=== PATIENT | male | born 1945 | race African-American/Black ===

== ENCOUNTER 2017-10-17 10:37 | Emergency (ER) | payer OTHER, BC ==
[~2017-10-17] VITALS: Ht 190.5 cm; Wt 84.4 kg
[2017-10-17 12:09] LABS: URINE BILIRUBIN NEGATIVE (Negative); URINE BLOOD NEGATIVE (Negative); URINE CLARITY CLEAR; URINE COLOR YELLOW; URINE GLUCOSE-RANDOM* NEGATIVE (Negative); URINE KETONES NEGATIVE (Negative); URINE LEUKOCYTES-REFLEX NEGATIVE (Negative); URINE NITRITE-REFLEX NEGATIVE (Negative); URINE PROTEIN (DIPSTICK) NEGATIVE (Negative); URINE UROBILINOGEN 0.2 E.U./dl (0.2-1.0)
[2017-10-17] MEDS ORDERED: FLOMAX0.4 MG PO (12:12)
[2017-10-17 13:25] VITALS: BP 127/70
== END 2017-10-17 13:26 | disposition home or self-care (01) ==
LOC: ER 10:37
PROVIDERS: Emergency Medicine
DX: R33.9 Retention of urine, unspecified (principal)

== ENCOUNTER 2018-10-04 11:48 | Inpatient (IN) | payer OTHER, BC ==
[2018-10-04] VITALS (8 sets, daily range): BP systolic 99–150; BP diastolic 48–70
[~2018-10-04] VITALS: Ht 190.5 cm; Wt 83.9 kg
[~2018-10-04 11:48] MED LIST: FLOMAX0.4 MG PO
[2018-10-04 12:32] LABS: MCH 32.5 pg (26.0-34.0); MCHC 33.8 g/dL (28.0-37.0)
[2018-10-04] MEDS ORDERED: ALFUZOSIN HCL10 MG PO (12:32)
[2018-10-04] MEDS ORDERED: LOSARTAN POTAS100 MG PO (12:32)
[2018-10-04] MEDS ORDERED: ENBREL50 MG/1 M1 (12:33)
[2018-10-04] MEDS ORDERED: GABAPENTIN 100100 MG PO (12:33)
[2018-10-04 12:34] LABS: ABSOLUTE NEUTROPHILS 6.8 thou/uL (1.4-8.2); BASOPHILS 0.2 % (0.0-2.0); LYMPHOCYTES 28.3 % (24.0-44.0); MCV 95.9 fL (80.0-100.0); PLATELET COUNT 212 thou/uL (150-400); POLYS 59.5 % (36.0-66.0); RBC 1.88 mil/uL (4.50-6.00); RDW 14.7 % (10.5-14.5); WBC 11.4 thou/uL (4.0-11.0)
[2018-10-04] MEDS ORDERED: CADUET 5 MG-101 EACH PO (12:34)
[2018-10-04] MEDS ORDERED: COREG6.25 MG PO (12:35)
[2018-10-04] MEDS ORDERED: FISH OIL 1,001000 M2 PO (12:35)
[2018-10-04] MEDS ORDERED: VITAMIN D400 UNI2 PO (12:36)
[2018-10-04] MEDS ORDERED: VITAMINC500 PO (12:36)
[2018-10-04] MEDS ORDERED: UNICOMPLEX M TA1 TA1 PO (12:36)
[2018-10-04 12:37] LABS: HEMOGLOBIN 6.1 gm/dL (14.0-18.0)
[2018-10-04 12:43] LABS: CALCIUM 8.8 mg/dL (8.5-10.1); POTASSIUM 4.4 mmol/L (3.5-5.1)
[2018-10-04 12:48] LABS: PROTIME 10.7 Seconds (9.3-11.4)
[2018-10-04 12:53] LABS: ALBUMIN 2.7 g/dL (3.4-5.0); TOTAL BILIRUBIN 0.3 mg/dL (<0.1-1.0); TOTAL PROTEIN 6.6 g/dL (6.4-8.2); TROPONIN-I 0.38 ng/mL (<0.06)
[2018-10-04] MEDS ORDERED: PREDNISONE 5 MG5 M1 PO (14:55)
[2018-10-04] MEDS ORDERED: NEXIUM40 MG PO (14:56)
[2018-10-04] MEDS ORDERED: HYDROXYCHLOROQ200 M1 PO (14:56)
--- NOTE | 2018-10-04 18:12 | NUR ---
DEPUTY INSURANCE COMMISSIONER STATED FRIEND ASKED WHERE PATIENTS BILLFOLD WAS, PATIENT STATED IN HIS PANTS IN CLOSET. THIS NURSE AND DEPUTY INSURANCE COMMISSIONER FILLED OUT PATIENT VALUABLES ENVELOPE AND SECURITY IS GOING TO PICK-UP.
--- NOTE | 2018-10-04 18:40 | NUR ---
UA OBTAINED AT THIS TIME TAKEN TO LAB
[2018-10-04 18:59] LABS: URINE BILIRUBIN NEGATIVE (Negative); URINE BLOOD NEGATIVE (Negative); URINE CLARITY CLEAR; URINE COLOR YELLOW; URINE GLUCOSE-RANDOM* NEGATIVE (Negative); URINE KETONES NEGATIVE (Negative); URINE LEUKOCYTES-REFLEX NEGATIVE (Negative); URINE NITRITE-REFLEX NEGATIVE (Negative); URINE PROTEIN (DIPSTICK) NEGATIVE (Negative); URINE SPECIFIC GRAVITY 1.015 (1.005-1.035); URINE UROBILINOGEN 0.2 E.U./dl (0.2-1.0)
[2018-10-04 20:59] LABS: HEMATOCRIT 17.6 % (42.0-52.0); HEMOGLOBIN 5.8 gm/dL (14.0-18.0)
[2018-10-05 04:56] VITALS: BP 118/61
[2018-10-05 05:07] LABS: HEMATOCRIT 20.4 % (42.0-52.0); MCH 31.6 pg (26.0-34.0); MCHC 34.1 g/dL (28.0-37.0); MCV 92.6 fL (80.0-100.0); RBC 2.21 mil/uL (4.50-6.00); RDW 15.2 % (10.5-14.5); WBC 9.9 thou/uL (4.0-11.0)
[2018-10-05 05:13] LABS: CALCIUM 7.7 mg/dL (8.5-10.1); CREATININE 0.7 mg/dL (0.7-1.3); POTASSIUM 4.1 mmol/L (3.5-5.1)
[2018-10-05 07:42] VITALS: BP 102/53
--- NOTE | 2018-10-05 08:08 | EKG ---
[address] [address] ELECTROCARDIOGRAM REPORT Name: YANGMATIAS E Room #: 361-P ADM IN M.R.#: [id number] ������������������ Admission: 10/04/18 ������������������ Attend Phys: Mikal Escalera MD Discharge: ������������������ Date of : 45 Report #: [id number] ����������������������������������������������������������������� [id number] THIS REPORT FOR: //name// [facility] ED Test Date: 2018-10-04 Test Time: 11:59:44 Pat Name: MATIAS YANG Department: Room: [facility] Gender: M Installer Inspector Final: OTF : 1945 Requested By: Janice Zhang Order Number: [id number] MD: Alexandre Munoz Measurements Intervals [place] Rate: 100 P: 35 VA: 161 QRS: 47 QRSD: 96 T: 49 QT: 346 QTc: 447 Interpretive Statements Sinus tachycardia with occasional premature ventricular complexes Minimal ST depression, lateral leads No previous ECG available for comparison Electronically Signed On 10-05-2018 8:07:49 CDT by Alexandre Munoz [email or web address] ��������������������������������������������� <ELECTRONICALLY SIGNED> ���������������������������������������� By: Alexandre Munoz MD, [facility] ��������������������������������������������� 10/05/18 0807 [id number] Alexandre Munoz MD, FACC /EPI
--- NOTE | 2018-10-05 09:28 | NUR ---
Nutrition: pt admitted with GIB and risked for poor intake and weight loss. Current weight down 2-5# from usual range which is not significant. PO intake has been down for 3 days. Noted pt with increased use of NSAIDs for an injury. Planning EGD this am. Protonix started. Pt asking when he can eat. Generally good appetite. Will follow for diet advance but consider low risk at present.
--- NOTE | 2018-10-05 12:26 | NUR ---
Chart reviewed and case discussed with the care team. Pt out of room at this time for EGD and no family present. Nursing reports the pt is up with supervision and a&ox4. He lives with his and was independent and active prior to admission. He had a recent sprained ankle and was taking naproxen. Workup for GI bleed in progress. The pt has had two units of PRBC. No cm interventions indicated at this time. Will remain available should needs arise.
--- NOTE | 2018-10-05 15:48 | NUR ---
PT ALERT AND ORIENTED TIMES FOUR VSS, 99%RA, SR ON TELE. PT DENIES PAIN/SOA. EGD DONE TODAY. PT UP WITH STANDBY ASSIST. PT TOLERATED MEALS. PT AT BEDSIDE. PT SLOWLY PROGRESSING [facility] GO[facility].
[2018-10-05 16:15] VITALS: BP 96/55
[2018-10-05 19:28] VITALS: BP 133/63
[2018-10-06] VITALS (8 sets, daily range): BP systolic 100–132; BP diastolic 47–90
--- NOTE | 2018-10-06 05:18 | NUR ---
PT IS IN GOOD SPIRITS AND WAS EATING A FULL MEAL. AFTER 2100 ASSESSMENT PT COMPLAINS OF HEARTBURN. ASKED PINPOINTED QUESTIONS ON THE TYPE OF PAIN AND IF HE HAS EXPERIENCED THAT TYPE OF PAIN IN THE PAST. HE HAS AND SAID HE TAKES TUMS FOR IT. RECEIVED ORDER FOR AND GAVE CALCIUM CARB. ALSO GAVE IV ZOFRAN WHICH HAD GOOD RESULTS AND PT RESTED COMFORTABLY REST OF EVENING. PT SHOULD DC TODAY IF HgB IS ABOVE 7.0. WILL CONTINUE TO MONITOR AND HOURLY ROUND.
[2018-10-06 05:30] LABS: MCH 31.8 pg (26.0-34.0); RBC 1.75 mil/uL (4.50-6.00); WBC 11.3 thou/uL (4.0-11.0)
[2018-10-06 05:32] LABS: MCHC 33.5 g/dL (28.0-37.0); MCV 94.9 fL (80.0-100.0); RDW 15.4 % (10.5-14.5)
[2018-10-06 05:35] LABS: HEMATOCRIT 16.6 % (42.0-52.0); HEMOGLOBIN 5.6 gm/dL (14.0-18.0)
--- NOTE | 2018-10-06 14:06 | PATH ---
[facility] [place] [address] PATHOLOGY RPT PROCEDURE Name: CELIAGOLD E Room #: 361-P ADM IN M.R.#: [id number] ������������������ Admission: 10/04/18 ������������������ Date of : 45 Discharge: Report #: [id number] Path Case #: [id number] [facility] Accession Number: [id number] . 01 Material submitted: . stomach - BX OF ANTRUM R/O H. PYLORI . 01 Clinical history: . Pre-OP DX: Upper GI bleed Post-OP DX: Duodenal bulb ulcer-none bleeding . 02 Diagnosis: Gastric mucosa, antrum R/O H. pylori, endoscopic biopsy: - Mild reactive gastropathy. - Negative for intestinal metaplasia or atrophy. - Negative for Helicobacter pylori (properly controlled immunohistochemical stain performed). . (IUV:aruna; 10/06/2018) QMS/10/06/2018 . 02 Electronically signed: . Sarah Dobbins MD, Pathologist NPI- [id number] . 01 Gross description: . Received in formalin labeled "Gold Parisi, BX antrum, rule out H. pylori," are 2 segments of katz soft tissue measuring 0.6 x 0.2 x 0.2 cm in aggregate dimensions and measuring 0.3 cm each in maximum dimension. The specimen is submitted entirely in cassette A1. (TSD; 10/05/2018) TOB/TOB . 02 Pathologist provided ICD-10: K31.9 . 02 CPT . 689321, M77518 Specimen Comment: A courtesy copy of this report has been sent to Specimen Comment: [phone], , . Specimen Comment: Report sent to ,DR KNIGHT / DR GREY Performed at: [address] [id number] MD Neftaly Flores MD Phone: [phone] Performed at: [facility] [address] [place] [address] PATHOLOGY RPT PROCEDURE Name: GOLD PARISI Room #: 361-P ADM IN M.R.#: [id number] ������������������ Admission: 10/04/18 ������������������ Date of : 45 Discharge: Report #: [id number] Path Case #: [id number] [address] [place] [address] [place] [id number] MD Sarah Dobbins MD Phone: [phone]
[2018-10-06 14:11] LABS: HEMATOCRIT 18.3 % (42.0-52.0); HEMOGLOBIN 6.2 gm/dL (14.0-18.0)
--- NOTE | 2018-10-06 18:40 | NUR ---
HAD TWO UNITS OF BLOOD TRANSFUSED TODAY DUE TO LOW HGB. HE IS ALERT ORIENTED X4. DENIES PAIN AT THIS TIME. RESPIRAIONS ARE NON LABORED. WILL CONT WITH PLAN OF CARE.
[2018-10-07 03:30] VITALS: BP 108/55
--- NOTE | 2018-10-07 05:01 | NUR ---
Pt. stated he slept intermittently during the night. Completed 2nd unit of blood without complications. No active bleeding. Kept NPO since MN for M2 capsule study today. No nausea or vomiting. Bed alarm on. Voided per urinal. at bedside.Denies any concern at this time. Will continue to monitor.
[2018-10-07 05:11] LABS: HEMATOCRIT 21.1 % (42.0-52.0); HEMOGLOBIN 7.1 gm/dL (14.0-18.0); MCH 31.6 pg (26.0-34.0); MCHC 33.8 g/dL (28.0-37.0); MCV 93.5 fL (80.0-100.0); RBC 2.26 mil/uL (4.50-6.00); RDW 15.8 % (10.5-14.5); WBC 8.6 thou/uL (4.0-11.0)
[2018-10-07 07:58] VITALS: BP 107/49
[2018-10-07 12:01] VITALS: BP 101/55
[2018-10-07 16:06] VITALS: BP 134/63
[2018-10-07 20:09] VITALS: BP 104/47
[2018-10-08 04:09] VITALS: BP 98/50
--- NOTE | 2018-10-08 05:09 | NUR ---
RESTING QUIETLY TONIGHT. STAYS AT BEDSIDE. HE DENIES NAUSEA OR VOMITING THIS SHIFT. HE DENIES ANY BOWEL MOVMENTS SINCE ADMISSION. CAREPLAN REVIEWED.
[2018-10-08 06:18] LABS: HEMATOCRIT 20.9 % (42.0-52.0); HEMOGLOBIN 7.2 gm/dL (14.0-18.0); MCH 32.3 pg (26.0-34.0); MCHC 34.3 g/dL (28.0-37.0); RBC 2.22 mil/uL (4.50-6.00); RDW 16.2 % (10.5-14.5); WBC 6.2 thou/uL (4.0-11.0)
[2018-10-08 07:38] VITALS: BP 113/52
--- NOTE | 2018-10-08 10:25 | NUR ---
ASSUMED CARES AT 0700. PT AWAKE, ALERT AND ORIENTED*4. C/O MILD RIGHT SHOULDER PAIN. VITALS REMAIN STABLE. LS CLEAR, O2 SATS > 95% ON RA. HS STABLE, EPISODES OF SINUS TACHYCARDIA AFTER PHYSICAL THERAPY THIS AM, OTHERWISE NSR. BS ACTIVE *4. ABDOMEN SOFT AND FLAT, PT REPORTED SMALL BM YESTERDAY (10/07/18). DENIES BLOODY STOOLS, N&V. DENIES DIZZINESS. UP WITH 1 SBA, GAITBELT AND WALKER, AND TOLERATED WELL. SPOUSE AT THE BEDSIDE. Q1H VISUAL CHECKS. CALL LIGHT WITHIN REACH
[2018-10-08] MEDS ORDERED: PROTONIX40 M1 PO (12:13)
[2018-10-08 12:23] VITALS: BP 113/52
[2018-10-08 12:30] VITALS: BP 105/56
== END 2018-10-08 15:02 | disposition home or self-care (01) | DRG 377 ==
LOC: ER 11:48 → EROBS 13:15 → 3W 13:15
PROVIDERS: Physician Assistant; ADMIT Hospitalist
PROC: 30233N1 Transfusion of Nonautologous Red Blood Cells into Peripheral Vein, Percutaneous Approach (ICD-10-PCS; principal; 2018-10-04)
PROC: 0DB68ZX Excision of Stomach, Via Natural or Artificial Opening Endoscopic, Diagnostic (ICD-10-PCS; 2018-10-05)
DX: K26.4 Chronic or unspecified duodenal ulcer with hemorrhage (principal); E43 Unspecified severe protein-calorie malnutrition; D62 Acute posthemorrhagic anemia; I10 Essential (primary) hypertension; E78.5 Hyperlipidemia, unspecified; M06.9 Rheumatoid arthritis, unspecified; N40.0 Benign prostatic hyperplasia without lower urinary tract symptoms; R00.0 Tachycardia, unspecified; M19.90 Unspecified osteoarthritis, unspecified site; K44.9 Diaphragmatic hernia without obstruction or gangrene; K25.9 Gastric ulcer, unspecified as acute or chronic, without hemorrhage or perforation; Z79.899 Other long term (current) drug therapy; Z87.11 Personal history of peptic ulcer disease; Z87.891 Personal history of nicotine dependence
CPT/HCPCS: 10879; 62110; 62900; 70005

== ENCOUNTER → 2018-12-27 | Outpatient (CLI) | payer OTHER, BC ==
[~2018-12-27] VITALS: Ht 190.5 cm; Wt 85.3 kg
[~2018-12-27] MED LIST changes: +ALFUZOSIN HCL10 MG PO; +CADUET 5 MG-101 EACH PO; +COREG6.25 MG PO; +ENBREL50 MG/1 M1; +FISH OIL 1,001000 M2 PO; +GABAPENTIN 100100 MG PO; +HYDROXYCHLOROQ200 M1 PO; +IRON325 PO; +LOSARTAN POTAS100 MG PO; +NEXIUM40 MG PO; +PREDNISONE 5 MG5 M1 PO; +PROTONIX40 M1 PO; +TYLENOL EXTRA500 MG PO; +UNICOMPLEX M TA1 TA1 PO; +VALIUM10 MG PO; +VITAMIN D400 UNI2 PO; +VITAMINC500 PO
--- NOTE | 2018-12-29 16:06 | PATH ---
[facility] [address] [address] PATHOLOGY RPT PROCEDURE Name: GOLD PARISI Room #: REG [facility] Zana.#: [id number] Admission: 12/27/18 Date of : 45 Discharge: Report #: [id number] Path Case #: [id number] [facility] Accession Number: [id number] . 01 Material submitted: . PART A: stomach - BX ANTRUM PART B: esophagus - BX DISTAL ESOPHAGUS. Modifiers: distal . 01 Clinical history: . Pre-op diagnosis: Check ulcers Post-op diagnosis: Esophagitis, esophageal stricture, hiatal hernia, duodenitis . 02 Diagnosis: A. Gastric mucosa, antrum, rule out H. pylori, endoscopic biopsy: - Mild to moderate reactive gastropathy with focal intestinal metaplasia. - Negative for atrophy. - Negative for Helicobacter pylori (properly controlled immunohistochemical stain performed). . B. 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 - Negative for dysplasia. (IUV:pit; 12/29/2018) QTP/12/29/2018 . 02 Comment: An alcian blue PAS (Ph2.5) was performed on block B and it shows focal metaplastic changes present within the epithelium. . 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 (IUV:pit; 12/29/2018) . 02 Electronically signed: . Sarah Dobbins MD, Pathologist NPI- [id number] . 01 Gross description: . A. The specimen is received in formalin, labeled "Gold Parisi, biopsy antrum, R/O H. pylori". Received are two segments of pale katz soft tissue measuring 0.4 cm each in maximum dimensions. The specimen is submitted [address] [address] PATHOLOGY RPT PROCEDURE Name: GOLD PARISI [id number] Admission: 12/27/18 Date of : 45 Discharge: Report #: [id number] Path Case #: [id number] entirely in cassette A1. . B. The specimen is received in formalin, labeled "Gold Parisi, biopsy distal esophagus, R/O Juarez's". Received is a segment of pale katz soft tissue measuring 0.4 cm in maximum dimensions. The specimen is submitted entirely in cassette B1. (CAA; 12/27/2018) QAC/QAC . 02 Pathologist provided ICD-10: K31.9, K22.70 . 02 CPT . 682578, 523872, T04298, 381848 Specimen Comment: A courtesy copy of this report has been sent to Specimen Comment: [phone], . Specimen Comment: Report sent to / DR KNIGHT Performed at: [address], [place], [place] [id number] MD Neftaly Flores MD Phone: [phone] Performed at: [address] [id number] MD Sarah Dobbins MD Phone: [phone]
== END | disposition home or self-care (01) ==
LOC: GI 08:35
DX: K31.9 Disease of stomach and duodenum, unspecified (principal); K22.70 Barrett's esophagus without dysplasia; K22.2 Esophageal obstruction; K44.9 Diaphragmatic hernia without obstruction or gangrene; K29.80 Duodenitis without bleeding; K20.9 Esophagitis, unspecified; I10 Essential (primary) hypertension; E78.5 Hyperlipidemia, unspecified; D64.9 Anemia, unspecified; K21.9 Gastro-esophageal reflux disease without esophagitis; M06.9 Rheumatoid arthritis, unspecified; Z98.890 Other specified postprocedural states; Z87.891 Personal history of nicotine dependence; Z79.899 Other long term (current) drug therapy
CPT/HCPCS: 62110; 62900

== ENCOUNTER → 2019-03-21 | Outpatient (CLI) | payer OTHER, BC ==
[~2019-03-21] VITALS: Ht 190.5 cm; Wt 83.0 kg
--- NOTE | 2019-03-22 17:06 | PATH ---
[facility] [address] [address] [place] [address] PATHOLOGY RPT PROCEDURE Name: GOLD PARISI Room #: REG [facility] Zana.#: [id number] Admission: 03/21/19 Date of : 45 Discharge: Report #: [id number] Path Case #: [id number] [facility] Accession Number: [id number] . 01 Material submitted: . PART A: stomach - BX OF ANTRUM PART B: esophagus - BX OF DISTAL ESOPHAGUS. Modifiers: distal . 01 Clinical history: . Pre-OP DX: Hx of Juarez's Post-OP DX: Esophageal stricture, hiatal hernia, gastric erosion . 02 Diagnosis: A. Gastric mucosa, antrum to rule out H. pylori, endoscopic biopsy: - Fragments comprised of fibrinopurulent material, consistent with ulceration. - Gastric mucosa showing features of mild reactive gastropathy as well as fibrosis within lamina propria. - Negative for intestinal metaplasia or atrophy. - Negative for acute inflammation within intact epithelium. - Negative for Helicobacter pylori (properly controlled immunohistochemical stain performed. . B. Gastroesophageal mucosa, distal esophagus rule out Juarez's, endoscopic biopsy: - Focal specialized columnar epithelium (gastric fundic-type mucosa) with a rare cell showing intestinal metaplasia, compatible with early Juarez's metaplasia. - Negative for dysplasia or malignancy. - Squamous mucosa with mild esophagitis and changes compatible with reflux. LBQ 03/22/2019 1547 Local . 02 Comment: Part B: The tisseue sampled as "GE junction biopsy tissue" shows gastric fundic-type mucosa. A tiny fragment of detached superficial columnar fundic-type mucosa shows intestinal metaplasia. Much of the intact biopsy tissue lacks intestinal metaplasia which may be due to sampling. 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 (IUV/db; 03/22/2019) . 02 Electronically signed: . Sarah Dobbins MD, [place] [address] PATHOLOGY RPT PROCEDURE Name: GOLD PARISI Room #: REG [facility]#: [id number] Admission: 03/21/19 Date of : 45 Discharge: Report #: [id number] Path Case #: [id number] [facility]- [id number] . 01 Gross description: . A. Received in formalin labeled "Gold Parisi, BX of antrum," and additionally labeled on the requisition as "to rule out H. pylori," are 3 segments of katz soft tissue measuring 0.9 x 0.6 x 0.2 cm in aggregate dimensions and ranging from 0.2 to 0.5 cm in maximum dimension. The specimen is submitted entirely in cassette A1. . B. Received in formalin labeled "Gold Parisi, BX of distal esophagus," and additionally labeled on the requisition as "to rule out Juarez's," are 2 segments of katz soft tissue measuring 0.7 x 0.2 x 0.2 cm in aggregate dimensions and ranging from 0.3 to 0.4 cm in maximum dimension. The specimen is submitted entirely in cassette B1. (TSD; 03/21/2019) TOB/TOB 03/21/2019 1753 Local . 02 Pathologist provided ICD-10: K25.9, K31.9, K22.70 . 02 CPT . 787355, 948255, L31183 Specimen Comment: A courtesy copy of this report has been sent to [phone] Specimen Comment: [phone] Specimen Comment: Report sent to / DR KNIGHT Performed at: [address], [place] [id number] MD Neftaly Flores MD Phone: [phone] Performed at: [address] [id number] MD Sarah Dobbins MD Phone: [phone]
== END | disposition home or self-care (01) ==
LOC: GI 08:39
DX: K21.0 Gastro-esophageal reflux disease with esophagitis (principal); K22.70 Barrett's esophagus without dysplasia; K31.9 Disease of stomach and duodenum, unspecified; K25.9 Gastric ulcer, unspecified as acute or chronic, without hemorrhage or perforation; K22.2 Esophageal obstruction; K44.9 Diaphragmatic hernia without obstruction or gangrene; I10 Essential (primary) hypertension; M06.9 Rheumatoid arthritis, unspecified; E78.5 Hyperlipidemia, unspecified; Z87.891 Personal history of nicotine dependence; Z98.890 Other specified postprocedural states; Z79.899 Other long term (current) drug therapy
CPT/HCPCS: 62110; 62900